=== PATIENT | female | born 1970 | race Two or more races ===

== ENCOUNTER 2022-08-11 09:25 | Day surgery (SDC) | payer OTHER | END 2022-08-11 17:20 | disposition home or self-care (01) | LOC: AMB-ENDOS 09:25 | PROVIDERS: ATTEND Colon & Rectal Surgery | DX: K62.89 Other specified diseases of anus and rectum (principal); K57.30 Diverticulosis of large intestine without perforation or abscess without bleeding; K64.8 Other hemorrhoids; R19.4 Change in bowel habit; Z20.822 Contact with and (suspected) exposure to COVID-19 ==